=== PATIENT | female | born 1975 | race Caucasian/White ===

== ENCOUNTER 2019-06-01 22:52 | Emergency (ER) | payer MEDICAID, OTHER ==
[~2019-06-01] VITALS: Ht 170 cm; Wt 63.6 kg
--- NOTE | 2019-06-01 23:11 | ED General ---
General Chief Complaint: General Problems/Pain Stated Complaint: FALL/FEVER Source of Information: Patient History of Present Illness Date Seen by Provider: Jun 01, 2019 Time Seen by Provider: 23:10 Initial Comments Patient is a 44 y/o female who comes to the ER with multiple complaints. Patient states she was standing on a small ladder yesterday and lost balance falling about three feet to the ground. She c/o pain over the left shoulder and left knee. She also sustained minor abrasions over the left knee. She does also c/o bilateral musculoskeletal back pain. She does have known history of chronic DJD and pain in the lumbar spine. She has been ambulating without difficulty since the event and taking only tylenol at home for the pain. She also c/o some viral symptoms. Had some n/v/d last week which is now reportedly improving. She continues to c/o general malaise but is able to eat and drink. No cough but she does c/o some congestion and intermittent fever at home. No abdominal pain. No urinary symptoms. Allergies and Home Medications Allergies Coded Allergies: acetaminophen (Verified Allergy, Unknown, 06/01/19) ampicillin (Verified Allergy, Unknown, 06/01/19) clindamycin (Verified Allergy, Unknown, 06/01/19) codeine (Verified Allergy, Unknown, 06/01/19) doxycycline (Verified Allergy, Unknown, 06/01/19) duloxetine (Verified Allergy, Unknown, 06/01/19) ephedrine (Verified Allergy, Unknown, 06/01/19) fludrocortisone (Verified Allergy, Unknown, 06/01/19) gentamicin (Verified Allergy, Unknown, 06/01/19) hydrocodone (Verified Allergy, Unknown, 06/01/19) indomethacin (Verified Allergy, Unknown, 06/01/19) omeprazole (Verified Allergy, Unknown, 06/01/19) oxycodone (Verified Allergy, Unknown, 06/01/19) pantoprazole (Verified Allergy, Unknown, 06/01/19) prednisone (Verified Allergy, Unknown, 06/01/19) varenicline (Verified Allergy, Unknown, 06/01/19) Patient Home Medication List Home Medication List Reviewed: Yes Review of Systems Review of Systems Constitutional: see HPI EENTM: no symptoms reported Respiratory: no symptoms reported Cardiovascular: no symptoms reported Gastrointestinal: see HPI Genitourinary: no symptoms reported Musculoskeletal: see HPI Skin: no symptoms reported All Other Systems Reviewed Negative Unless Noted: Yes Past Reyadfo-Efdvri-Hktxva Hx Patient Social History Recent Foreign Travel: No Contact w/Someone Who Travel: No Physical Exam Vital Signs Vital Signs - First Documented 06/01/19 23:01 Temp 36.6 Pulse 66 Resp 16 B/P (MAP) 161/95 (117) Pulse Ox 100 O2 Delivery Room Air Capillary Refill : Height, Weight, BMI Height: '" Weight: lbs. oz. kg; BMI Method: General Appearance: No Apparent Distress, WD/WN HEENT: PERRL/EOMI Neck: Full Range of Motion, Normal Inspection, Non Tender, Supple Respiratory: Lungs Clear Cardiovascular: No Murmur, Normal Peripheral Pulses Gastrointestinal: Non Tender, Soft Extremity: Normal Capillary Refill, Other (minor abrasion over anterior aspect of left knee but good ROM and no laxity with ligamentous testing. No deformity to left shoulder but some mild discomfort with passive ROM, which is preserved.) Neurologic/Psychiatric: Oriented x3 Skin: Normal Color Progress/Results/Core Measures Suspected Sepsis SIRS Temperature: Pulse: Respiratory Rate: Blood Pressure / Mean: Results/Orders My Orders Orders - ESTHELA NEAL DO Knee 3 View Left (06/01/19 23:18) Shoulder 2 View Left (06/01/19 23:18) Vital Signs/I&O 06/01/19 23:01 Temp 36.6 Pulse 66 Resp 16 B/P (MAP) 161/95 (117) Pulse Ox 100 O2 Delivery Room Air Capillary Refill : Progress Note : Time: 23:11 Progress Note Patient is seen and examined. No distress and PE as documented above. Patient ambulates without difficulty. Regarding her MSK complaints, will do plain film imaging of the left knee and left shoulder. Regarding her viral symptoms, she has an entirely negative HEENT and lung exam. She is nontoxic and afebrile. No additional work-up indicated. 23:50: XRays reviewed. No acute fractures seen. Plan is for d/c home. Patient states her tetanus imm is UTD. She has flexeril at home that she can use for muscle spasm. She also has a shoulder sling which I encouraged her to use as needed on the left side. F/U with PCP and return to ER for any new or concerning symptoms. Overall, the patient is well-appearing and with no acute findings on PE or imaging. Departure Impression Primary Impression: Contusion, knee Additional Impression: Viral syndrome Disposition: HOME, SELF-CARE Condition: Stable Departure-Patient Inst. Referrals: NO,LOCAL PHYSICIAN (PCP/Family) Primary Care Physician ESTHELA NEAL DO Jun 01, 2019 23:11
[2019-06-01 23:52] VITALS: BP 161/95
--- OUTSIDE RECORDS SUMMARY | 2019-06-02 04:22 | XMS REPORT | Continuity of Care Document ---
Author Organization Unknown Address Unknown Phone Unavailable Allergies There is no data. Medications There is no data. Problems There is no data. Procedures There is no data. Results Test Result Range STOOL (C-DIFF) - 05/04/18 11:04 CLOSTRIDIUM DIFFICILE TOXIN/GDH W/REFL TO PCR NRG CULTURE, URINE - 10/24/18 14:29 CULTURE, URINE, ROUTINE NRG SUREPATH PAP RFX HPV mRNA E6/E7 - 10:36 CLINICAL INFORMATION: NRG LMP: NRG PREV. PAP: NRG PREV. BX: NRG SOURCE: Vagina NRG STATEMENT OF ADEQUACY: NRG INTERPRETATION/RESULT: NRG CHIEF PROGRAM OFFICER: NRG COMMENT NRG Encounters ACCT No. Visit Date/Time Discharge Status Pt. Type Provider Facility Loc./Unit Complaint [id number] 01/13/2019 18:00:00 01/13/2019 23:59:5 9 [facility] Outpatient Cece Tan [id number] 11/14/2018 10:30:00 Document Registration [id number] 10/24/2018 14:20:00 Document Registration [id number] 05/04/2018 11:00:00 Document Registration
--- OUTSIDE RECORDS SUMMARY | 2019-06-02 04:22 | XMS REPORT ---
Author Author Eden GOODRICH Organization [facility] Address [address] [place] [address] Care Team Providers Care Supervisor Cig[employer] Making Hand Name Role Phone ARABELLA GOODRICH Unavailable PROBLEMS Type Condition ICD9-CM Code MBX38-FX Code Onset Dates Condition S tatus SNOMED Code Problem Follow-up examination following surgery Z09 08 Oct, 2013 0 907994834 Problem Status post bilateral breast biopsy V45.89 17 J an, 2014 0 81299319 Problem History of nephrolithiasis V13.01 Mar, 0 773648152 Problem Acute intractable tension-type headache 339.10 Nov, 0 400074980 Problem Status post bilateral breast biopsy Z98.890 17 J an, 2014 0 991245864 Problem Nipple discharge 611.79 Oct, 0 17411719 Problem Contusion of right upper extremity 923.9 07 Se p, 2015 0 75459025 Problem Muscle spasm 728.85 Jun, 0 4535 2006 Problem Infection of skin and subcutaneous tissue L08.9 03 Oct, 2015 0 197338218 Problem Dysautonomia 337.9 May, 0 1524 1006 Problem Contusion of right upper extremity S40.021A 07 Se p, 2014 0 02124966 Problem Follow-up examination following surgery V67.00 08 Oct, 2013 0 028909290 Problem Dysautonomia G90.1 May, 0 1524 1006 Problem Cigarette nicotine dependence, uncomplicated F17.2 10 16 Nov, 2014 0 844031040 Problem Plantar wart of both feet B07.0 Oct, 0 [id number] Problem Hydrosalpinx N70.11 08 Nov, 2015 0 2171 1003 Problem Increased thirst R63.1 Nov, 0 906894772 Problem Acute intractable tension-type headache G44.201 Nov, 0 534923456 Problem History of nephrolithiasis Z87.442 Mar, 0 704642448 Problem Paroxysmal atrial tachycardia I47.1 17 Dec, 13 0 262834789 Problem Paroxysmal atrial tachycardia 427.0 Dec, 13 0 199320961 Problem Lump or mass in breast N63.0 Mar, 0 17138580 Problem Cigarette nicotine dependence, uncomplicated 305.1 16 Nov, 2014 0 400744665 Problem Breast lump N63.0 09 Aug, 2014 0 57887 003 Problem Muscle spasm M62.838 Jun, 0 4535 2006 Problem Malaise and fatigue R53.81 Dec, 0 679388582 Problem Allergic reaction T78.40XA Mar, 0 657145993 Problem Depression F32.9 Dec, 0 194594 07 Problem Insomnia G47.00 Dec, 0 3342302 01 Problem Polydipsia R63.1 Nov, 0 317199 07 Problem Tobacco use Z72.0 16 Nov, 2014 0 54792 3000 Problem Anxiety state F41.1 Dec, 0 198 596702 Problem Panic attacks F41.0 Dec, 0 371 239893 Problem RA (rheumatoid arthritis) M06.9 Nov, 0 90145716 Problem Pelvic pain in female R10.2 08 Nov, 2015 0 906840947 Problem RA (rheumatoid arthritis) 714.0 Nov, 0 76245238 Problem Glossitis K14.0 May, 0 6425614 5 Problem Malaise and fatigue 780.79 Dec, 0 802290901 Problem Plantar wart of both feet 078.12 Oct, 0 34929650951679225 Problem Panic attacks 300.01 Dec, 0 371 902159 Problem Increased thirst 783.5 Nov, 0 537341984 Problem Allergic reaction 995.3 Mar, 0 486351248 Problem Polyphagia(783.6) R63.2 Nov, 0 210835117 Problem Breast lump 611.72 09 Aug, 2014 0 53554 003 Problem Infection of skin and subcutaneous tissue 686.9 Oct, 0 116791894 Problem Epigastric pain 789.06 Jun, 0 7 3891974 Problem Hydrosalpinx 614.1 08 Nov, 2015 0 2171 1003 Problem Pelvic pain in female 625.9 08 Nov, 2015 0 157163666 Problem Tobacco use 305.1 16 Nov, 2014 0 39939 3000 Problem Anxiety state 300.00 17 Dec, 2012 0 198 561633 Problem Slow transit constipation 564.01 13 Nov, 2015 0 09070289 Problem Nipple discharge N64.52 17 Oct, 2015 0 41286966 Problem Glossitis 529.0 May, 0 5953451 5 Problem Epigastric pain R10.13 Jun, 0 7 4504602 Problem Slow transit constipation K59.01 13 Nov, 2015 0 61933485 Problem Insomnia 780.52 17 Dec, 2012 0 2978304 01 Problem Other bursal cyst of wrist 727.49 12 Dec, 2016 0 210420779 Problem Depression 311 Dec, 0 850271 07 Problem Polydipsia 783.5 13 Nov, 2015 0 390018 07 Problem Lump or mass in breast 611.72 09 Mar, 2013 0 82177309 Problem Other bursal cyst of wrist M71.339 12 Dec, 2016 0 ALLERGIES No Information ENCOUNTERS Encounter Location Date Diagnosis [address] [id number] Jun, [address] [address] Apr, Tick- borne disease B88.2 and Diarrhea R19.7 [place] [address] [place] [id number] [address] [place] [phone] Apr, [address] [address] Apr, Oral jeferson B37.0 and Diarrhea, unspecified type R19.[address] [address] Mar, [address] [address] Mar, [address] [address] Mar, Tick- borne disease B88.2 [place] [address] [address] [facility] [id number] [address] [place] [phone] Feb, [place] [address] [place] [id number] [address] [place] [phone] Feb, [facility] [address] [id number] [address] [place] [phone] Feb, [facility] [address] [id number] [address] [place] [phone] Feb, [facility] [address] [id number] [address] [place] [phone] Jan, [facility] [address] [id number] [address] [place] [phone] Jan, [facility] [address] [id number] [address] [place] [phone] Jan, [facility] [address] [id number] [address] [place] [phone] Jan, [facility] [address] [id number] [address] [place] [phone] Jan, [facility] [address] [id number] [address] [place] [phone] Jan, [facility] [address] [id number] [address] [place] [phone] Jan, [facility] [address] [id number] [address] [place] [phone] Jan, [facility] [address] [id number] [address] [place] [phone] Jan, [facility] [address] [id number] [address] [place] [phone] Jan, IMMUNIZATIONS No Known Immunizations SOCIAL HISTORY Never Assessed REASON FOR VISIT Lab (walk-in) PLAN OF CARE VITAL SIGNS MEDICATIONS Unknown Medications RESULTS No Results PROCEDURES Procedure Date Ordered Result Body Site LAB NOT BILLED BY [facility] May 04, 2018 INSTRUCTIONS MEDICATIONS ADMINISTERED No Known Medications MEDICAL (GENERAL) HISTORY Type Description Date Medical History paroxysmal atrial tachycardia Medical History insomnia Medical History anxiety Medical History depression Medical History lump or mass in breast Medical History Dysautonomia Medical History Hydrosalpinx Medical History Polyphagia Medical History Polydispia Medical History RA Medical History Acute Headaches - Tension Type Surgical History Bilateral Breast Biopsy
--- NOTE | 2019-06-02 07:06 | Diagnostic Imaging Report ---
KNEE 3 VIEW LEFT COMPARISON: None available. INDICATION: Fall with left knee pain. TECHNIQUE: Non-weight bearing AP, oblique, and lateral views of the left knee. FINDINGS: No fracture or traumatic malalignment. The joint spaces are well maintained. No knee joint effusion. IMPRESSION: Normal left knee radiographs. Dictated by: Dictated on workstation # [id number]
--- NOTE | 2019-06-02 07:08 | Diagnostic Imaging Report ---
INDICATION: Left shoulder pain after fall. COMPARISON: None available. TECHNIQUE: 3 views of the left shoulder were obtained. FINDINGS: No acute fracture or traumatic malalignment. Subacromial space is preserved. No abnormal soft tissue mineralizations. IMPRESSION: Normal left shoulder radiographs. Dictated by: Dictated on workstation # [id number]
== END 2019-06-01 23:53 | disposition home or self-care (01) ==
LOC: ER FS 22:58
DX: S80.02XA Contusion of left knee, initial encounter (principal); B34.9 Viral infection, unspecified; Z88.6 Allergy status to analgesic agent; Z88.1 Allergy status to other antibiotic agents; Z88.5 Allergy status to narcotic agent; Z88.8 Allergy status to other drugs, medicaments and biological substances; W11.XXXA Fall on and from ladder, initial encounter
CPT/HCPCS: 73030; 73562

== ENCOUNTER 2022-11-18 23:35 | Emergency (ER) | payer MEDICAID ==
[~2022-11-18] VITALS: Ht 170.1 cm; Wt 53.0 kg
--- NOTE | 2022-11-18 23:52 | ED Cough/URI ---
General Chief Complaint: COVID19 Suspect/Confirmed Stated Complaint: COVID History of Present Illness Date Seen by Provider: Nov 18, 2022 Time Seen by Provider: 23:45 Initial Comments 47-year-old female with PMH of sick sinus syndrome with a pacemaker/left ventricular hypertrophy/HTN/C. difficile on treatment/extensive multiple drug allergies, is here with complaints of having COVID a week ago and has completed a course of Paxlovid, but still having generalized body aches, myalgia, congestion, chills, nausea, diarrhea. Patient states that she feels much better but she still has all the symptoms on the lesser scale. Patient states that she has had diarrhea for the past month or 2 and is on treatment for C. difficile but she felt as if her diarrhea worsened a little bit once she developed COVID. Patient has not been able to eat or drink all day due to nausea. Patient took Zofran 2 hours prior to coming to the ER. Patient is currently on Flagyl and Keflex. Patient's PCP is at . Denies fever and chills, chest pain, shortness of breath, palpitations, dysuria. Allergies and Home Medications Allergies Coded Allergies: acetaminophen (Verified Allergy, Unknown, 06/01/19) ampicillin (Verified Allergy, Unknown, 06/01/19) clindamycin (Verified Allergy, Unknown, 06/01/19) codeine (Verified Allergy, Unknown, 06/01/19) doxycycline (Verified Allergy, Unknown, 06/01/19) duloxetine (Verified Allergy, Unknown, 06/01/19) ephedrine (Verified Allergy, Unknown, 06/01/19) fludrocortisone (Verified Allergy, Unknown, 06/01/19) gentamicin (Verified Allergy, Unknown, 06/01/19) hydrocodone (Verified Allergy, Unknown, 06/01/19) indomethacin (Verified Allergy, Unknown, 06/01/19) omeprazole (Verified Allergy, Unknown, 06/01/19) oxycodone (Verified Allergy, Unknown, 06/01/19) pantoprazole (Verified Allergy, Unknown, 06/01/19) prednisone (Verified Allergy, Unknown, 06/01/19) varenicline (Verified Allergy, Unknown, 06/01/19) Patient Home Medication List Home Medication List Reviewed: Yes Review of Systems Review of Systems Constitutional: malaise EENTM: nose congestion Respiratory: no symptoms reported Cardiovascular: no symptoms reported Gastrointestinal: diarrhea, nausea Genitourinary: no symptoms reported Musculoskeletal: no symptoms reported Skin: no symptoms reported Psychiatric/Neurological: No Symptoms Reported Hematologic/Lymphatic: No Symptoms Reported Immunological/Allergic: no symptoms reported Past Fnasdro-Vkvrtv-Uauigd Hx Past Medical History Surgeries: No Respiratory: Yes Cardiac: Yes Hypertension Neurological: No Genitourinary: No Gastrointestinal: No Musculoskeletal: No Endocrine: No HEENT: No Cancer: No Psychosocial: Yes Anxiety, Depression Integumentary: No Blood Disorders: No Physical Exam Vital Signs - First Documented 11/18/22 23:37 Temp 37.0 Pulse 63 Resp 16 B/P (MAP) 116/69 (85) Pulse Ox 100 O2 Delivery Room Air Capillary Refill : Height: '" Weight: lbs. oz. 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, no motor/sensory deficits, alert, normal mood/affect, oriented x 3 Skin: normal color, other (Dry mucous membranes and tenting of skin) Progress/Results/Core Measures Suspected Sepsis SIRS Temperature: Pulse: Respiratory Rate: Blood Pressure / Mean: Laboratory Tests 11/19/22 00:03: Creatinine 1.11, Total Bilirubin 0.2 Results/Orders Lab Results Laboratory Tests Test 11/19/22 00:03 Range/Units Sodium Level 145 135-145 MMOL/L Potassium Level 3.7 3.6-5.0 MMOL/L Chloride Level 108 H 98-107 MMOL/L Carbon Dioxide Level 26 21-32 MMOL/L Anion Gap 11 5-14 MMOL/L Blood Urea Nitrogen 18 7-18 MG/DL Creatinine 1.11 0.60-1.30 MG/DL Estimat Glomerular Filtration Rate 62 BUN/Creatinine Ratio 16 Glucose Level 108 H 70-105 MG/DL Calcium Level 9.7 8.5-10.1 MG/DL Corrected Calcium 9.5 8.5-10.1 MG/DL Magnesium Level 2.0 1.6-2.4 MG/DL Total Bilirubin 0.2 0.1-1.0 MG/DL Aspartate Amino Transf (AST/SGOT) 18 5-34 U/L Alanine Aminotransferase (ALT/SGPT) 17 0-55 U/L Alkaline Phosphatase 51 40-136 U/L Total Protein 6.7 6.4-8.2 GM/DL Albumin 4.3 3.2-4.5 GM/DL My Orders Orders - CARLOS ROMO MD Ed Iv/Invasive Line Start (11/18/22 23:52) Ns Iv 1000 Ml (Ns Iv 1000 Ml) (11/19/22 00:00) Comprehensive Metabolic Panel (11/19/22 00:00) Magnesium (11/19/22 00:00) Vital Signs/I&O 11/18/22 23:37 Temp 37.0 Pulse 63 Resp 16 B/P (MAP) 116/69 (85) Pulse Ox 100 O2 Delivery Room Air Capillary Refill : Progress Note : Progress Note 1. COVID LONG HAUL SYNDROME & DEHYDRATION: - CMP: Electrolytes are stable and CMP is overall unremarkable - NS IVF bolus STAT in ER, pt feels better after this -Patient took Zofran 2 hours prior to coming to the ER. -Advised to continue Keflex and Flagyl as prescribed by her PCP at -Follow-up with PCP within the next 3 days. -Adequate fluids advised, as well as nutrition -The patient was seen in the ED, and treated appropriately to presentation at a specific point in time. Patient is informed that there is a possibility that disease and illness can evolve and change in acuity rapidly or slowly after patient is discharged from the ER. Precautionary advice given to the patient for immediate return to ER if symptoms worsen or do not resolve, and to seek emergency care sooner rather than later. Pt also advised on the importance of PCP follow up and compliance with management and follow up plan with PCP and/or specialist, as this is part of the management plan. Pt verbally expressed understanding. Departure Impression Primary Impression: COVID-19 long hasandor Additional Impression: Dehydration Disposition: 01 HOME, SELF-CARE Condition: Improved Departure-Patient Inst. Referrals: NO,LOCAL PHYSICIAN (PCP/Family) Primary Care Physician Patient Instructions: Dehydration, Adult ED, Long COVID, Preventing the Spread of an Infectious Disease Add. Discharge Instructions: -Advised to continue Keflex and Flagyl as prescribed by her PCP at -Follow-up with PCP within the next 3 days. -Adequate fluids advised, as well as nutrition All discharge instructions reviewed with patient and/or family. Voiced understanding. CARLOS ROMO MD Nov 18, 2022 23:52
[2022-11-19] MEDS ORDERED: NS IV 1000 ML 1,000 ML IV SCH
[2022-11-19 00:30] LABS: ALBUMIN 4.3 GM/DL (3.2-4.5); BILIRUBIN,TOTAL 0.2 MG/DL (0.1-1.0); CALCIUM 9.7 MG/DL (8.5-10.1); CREATININE SERUM 1.11 MG/DL (0.60-1.30); POTASSIUM 3.7 MMOL/L (3.6-5.0); TOTAL PROTEIN 6.7 GM/DL (6.4-8.2)
[2022-11-19 01:08] VITALS: BP 116/69
== END 2022-11-19 01:08 | disposition home or self-care (01) ==
LOC: EDUNIT# 23:35 → ER FS 23:37
DX: E86.0 Dehydration (principal); U09.9 Post COVID-19 condition, unspecified; Z88.1 Allergy status to other antibiotic agents; Z88.0 Allergy status to penicillin
CPT/HCPCS: 36415; 80053; 83735

== ENCOUNTER → 2023-02-01 | Outpatient (CLI) | payer MEDICAID ==
[2023-02-01 09:35] LABS: HEMATOCRIT 40 % (35-52); HEMOGLOBIN 13.6 g/dL (11.5-16.0); MEAN CORPUSCULAR HEMOGLOBIN 31 pg (25-34); MEAN CORPUSCULAR HGB CONC 34 g/dL (32-36); MEAN CORPUSCULAR VOLUME 91 fL (80-99); MEAN PLATELET VOLUME 12.3 fL (9.0-12.2); PLATELET COUNT 205 10^3/uL (130-400); WHITE BLOOD COUNT 11.5 10^3/uL (4.3-11.0)
[2023-02-01 09:59] LABS: CALCIUM 9.7 MG/DL (8.5-10.1); CREATININE SERUM 0.84 MG/DL (0.60-1.30)
[2023-02-01 10:00] LABS: ALBUMIN 4.4 GM/DL (3.2-4.5); BILIRUBIN,TOTAL 0.2 MG/DL (0.1-1.0); TOTAL PROTEIN 7.8 GM/DL (6.4-8.2)
--- NOTE | 2023-02-01 11:48 | Diagnostic Imaging Report ---
EXAMINATION: Abdomen 1 view HISTORY: Abdominal pain. COMPARISON: None available. FINDINGS: Moderate amount stool is present in the colon. No dilated bowel seen. IMPRESSION: 1. Moderate amount of stool. Dictated by: Dictated on workstation # [id number]
== END ==
LOC: RAD FS 08:43
PROVIDERS: ATTEND Nurse Practitioner
DX: K58.2 Mixed irritable bowel syndrome (principal); K59.00 Constipation, unspecified; R11.2 Nausea with vomiting, unspecified
CPT/HCPCS: 36415; 74018; 80053; 82533; 82607; 82728; 82746; 83540; 83550; 85027

== ENCOUNTER → 2023-02-07 | Outpatient (CLI) | payer MEDICAID | LOC: LABNPT 20:01 | PROVIDERS: ATTEND Nurse Practitioner | DX: K58.2 Mixed irritable bowel syndrome (principal); R11.2 Nausea with vomiting, unspecified | CPT/HCPCS: 82705; 83520; 83993; 87328; 87329 ==